=== PATIENT | male | born 1965 | race Caucasian/White ===

== ENCOUNTER 2018-04-15 17:18 | Emergency (ER) | payer BC, SELFPAY ==
[2018-04-15 17:19] VITALS: BP 137/78; PULSE 113; RESP 22; TEMP 36.7; O2SAT 95; BMI 25.7
--- NOTE | 2018-04-15 17:28 | ED.RN ---
lt ankle, red, swollen, and painful. pt states the drainage is from the bottom of the lt foot. no drainage noted by this rn.
--- NOTE | 2018-04-15 17:40 | RAD_ITS ---
STUDY: X-RAY - LEFT ANKLE REASON FOR EXAM: Male, 52 years old. Left ankle infection TECHNIQUE: 3 view(s) of the ankle. COMPARISON: None. FINDINGS: Normal visualized distal tibia and fibula. Normal medial and lateral malleoli. Normal tibiotalar articulation and ankle mortise. Normal visualized talus and calcaneus. The visualized subtalar, talonavicular, calcaneocuboid and tarsal articulations are normal. Medial (extending posteriorly) ankle soft tissue swelling without soft tissue gas. RAD/Ankle min 3 Views IMPRESSION: Soft tissue swelling without destructive or erosive bony process. Electronically Signed: Aldo Cheema MD at 18:00 EST , Service support ,
--- NOTE | 2018-04-15 17:43 | ED.DCSUM_ITS ---
- ER Visit Summary Date of Service: 04/15/18 Chief Complaint: Left ankle wound History of Present Illness: The patient is a 52 M with a history of eczema. Patient had a bad flare that started right around [place] where he got sloughing of the skin on the bottoms of both feet. He was seen by Dr. Alex degroot dermatology and started on a prednisone taper. Patient now notes redness and warmth to the medial portion of his left ankle and is concerned that he has skin infection. He has not had fever or chills. Physical Examination: Vital signs remarkable only for heart rate of 113, otherwise unremarkable. Patient sitting upright in bed no acute distress. He is nontoxic appearing. Lower extremity examination reveals peeling of the top layers of skin across the bottom of both feet and up on the medial side of each foot. There is an area of erythema and warmth spreading up along the medial malleolus of the left ankle. Lateral side of the ankle is nontender and non-erythematous. He has strong distal pulses. There is slight serosanguineous drainage from the distal aspect, plantar surface of the left foot. Test Results: Left ankle x-rays are obtained and joint spaces are clean with no sign of bony erosion. Emergency Department Course and Treatment: Patient will be treated with Bactrim and Keflex for secondary skin infection. He will continue his steroids as per his security installer and will follow up with him. Treatment Plan: [] Disposition: Discharge Impression: 1. Cellulitis left ankle 2. Eczema bilateral feet This note was generated with [employer] dictation software. It may contain incorrect words, spelling, and punctuation that were not noted in review of the chart prior to signing ED Disposition - Plan for ED Patient: Chief Complaint: Wound Referrals: NOT,DEFINED [NON-STAFF] -
--- NOTE | 2018-04-15 17:58 | ED.DEP ---
ED Disposition - Plan for ED Patient: Disposition: Home or Assisted Living Chief Complaint: Wound Instructions: ED Infec Skin Cellulitis, ED Dermatitis Atopic Eczema, Wound Care Prescriptions: Cephalexin [Keflex] 500 mg PO Q6 #40 capsule Smz/Tmp Ds [Bactrim Ds] 1 tablet PO BID #20 tablet Referrals: Jass Johnson MD [STAFF PHYSICIAN] - 1 Week
[2018-04-15] MEDS: Cephalexin 250 MG Capsule 500 MG PO (18:06)
[2018-04-15] MEDS: Smz/Tmp Ds Tablet 1 TABLET PO (18:06)
[2018-04-15 18:13] VITALS: RESP 18
== END 2018-04-15 18:14 | disposition home or self-care (01) ==
PROVIDERS: Emergency Provider Emergency Medicine
DX: L03.116 Cellulitis of left lower limb (principal); L30.9 Dermatitis, unspecified; Z79.52 Long term (current) use of systemic steroids
CPT/HCPCS: 73610; 99283; A4216